=== PATIENT | male | born 1995 | race Caucasian/White ===

== ENCOUNTER 2019-08-09 18:02 | Emergency (ER) | payer BC ==
--- NOTE | 2019-08-09 18:32 | EDM.PDOC ---
<Guera Lorenzo - Last Filed: 08/09/19 18:44> ED HPI GENERAL MEDICAL PROBLEM - General Chief Complaint: Cardiovascular Problem Stated Complaint: DIZZY, FELT SICK, LEFT SIDE OF BODY NUMB PER PT Time Seen by Provider: 08/09/19 18:30 Source of Information: Reports: Patient History Limitations: Reports: No Limitations - History of Present Illness INITIAL COMMENTS - FREE TEXT/NARRATIVE: Patient presents to the ED by private vehicle with concerns of dizziness, left sided weakness, and nausea. The patient describes driving in the car with his mother when he had a sudden onset of room spinning dizziness and nausea, mostly occurring on the right side of his body. He reports when getting out of the vehicle feeling that he was walking unbalanced toward his left. The patient denies chest pain, palpitations, shortness of breath, abdominal pain. The patient's mother with him at bedside reports that he was sitting in a very warm car waiting for her to arrive when this episode started. He denies smoking, elicit drug use, and only occasional alcohol use. He has a past medical history of occasional SVTs. He also admits to a distant history of migraines, his last migraine was over 1 year ago. Onset: Today Duration: Minutes: (Resolved shortly upon lying down in the ED) Severity: Moderate Improves with: Reports: None Worsens with: Reports: None Associated Symptoms: Reports: Nausea/Vomiting, Weakness. Denies: Confusion, Fever/Chills, Headaches, Syncope - Related Data Allergies Allergy/AdvReac Type Severity Reaction Status Date / Time No Known Allergies Allergy Verified 08/09/19 18:21 Home Meds: Home Meds . [No Known Home Meds] 08/09/19 [History] Past Medical History Cardiovascular History: Reports: Other (See Below) Other Cardiovascular History: PVC's Social & Family History - Family History Family Medical History: Noncontributory - Tobacco Use Smoking Status *Q: Never Smoker - Caffeine Use Caffeine Use: Reports: Soda - Recreational Drug Use Recreational Drug Use: No ED ROS GENERAL - Review of Systems Review Of Systems: See Below Constitutional: Reports: Weakness. Denies: Fever, Chills HEENT: Reports: Vertigo Respiratory: Denies: Shortness of Breath Cardiovascular: Reports: Lightheadedness. Denies: Chest Pain, Palpitations, Syncope GI/Abdominal: Denies: Abdominal Pain, Nausea, Vomiting Neurological: Reports: Dizziness, Numbness, Difficulty Walking, Gait Disturbance. Denies: Headache, Paresthesia, Syncope, Tingling, Tremors Psychiatric: Reports: Confusion, Hallucinations ED EXAM, GENERAL - Physical Exam Exam: See Below Exam Limited By: No Limitations General Appearance: Alert, No Apparent Distress, Anxious Eye Exam: Bilateral Eye: EOMI, PERRL Ears: Normal External Exam, Normal Canal, Normal TMs Ear Exam: Bilateral Ear: Auricle Normal, Canal Normal, TM normal (TM retracted on left) Nose: Normal Inspection, Normal Mucosa Throat/Mouth: Normal Inspection, Normal Oropharynx Head: Atraumatic, Normocephalic Neck: Supple, Non-Tender, Full Range of Motion Respiratory/Chest: No Respiratory Distress, Lungs Clear, Normal Breath Sounds Cardiovascular: Normal Peripheral Pulses, Regular Rate, Rhythm, No Murmur GI/Abdominal: Normal Bowel Sounds, Soft, Non-Tender Extremities: Normal Capillary Refill Neurological: Alert, Oriented, No Motor/Sensory Deficits Skin Exam: Warm, Dry, Intact Lymphatic: No Adenopathy EKG INTERPRETATION EKG Date: 08/09/19 Time: 18:10 Rhythm: NSR Rate (Beats/Min): 65 [place]: Normal P-Wave: Present QRS: Normal ST-T: Normal QT: Normal Comparison: NA - No Prior EKG Course - Vital Signs Last Recorded V/S: Last Vital Signs Temp 98.3 F 08/09/19 18:17 Pulse 67 08/09/19 18:17 Resp 14 08/09/19 18:17 BP 150/77 H 08/09/19 18:17 Pulse Ox 100 08/09/19 18:17 - Orders/Labs/Meds Orders: Active Orders 24 hr Category Date Time Status EKG 12 Lead [EKG Documentation Completion] [RC] STAT Care 08/09/19 18:28 Active Labs: Laboratory Tests 08/09/19 08/09/19 Range/Units 18:30 18:30 WBC 9.5 (5.0-10.0) 10^3/uL RBC 5.64 (4.6-6.2) 10^6/uL Hgb 17.6 (14.0-18.0) g/dL Hct 48.4 (40.0-54.0) % MCV 85.8 (80-100) fL MCH 31.2 (27.0-34.0) pg MCHC 36.4 H (33.0-35.0) g/dL Plt Count 220 (150-450) 10^3/uL Neut % (Auto) 57.0 (42.2-75.2) % Lymph % (Auto) 32.9 (20.5-50.1) % [place] % (Auto) 7.4 (2-8) % Eos % (Auto) 2.4 (1.0-3.0) % Baso % (Auto) 0.3 (0.0-1.0) % Sodium 138 (135-145) mmol/L Potassium 3.9 (3.6-5.0) mmol/L Chloride 102 (101-111) mmol/L Carbon Dioxide 26.0 (21.0-31.0) mmol/L Anion Gap 13.9 BUN 16 (7-18) mg/dL Creatinine 0.9 (0.6-1.3) mg/dL Est Cr Clr Drug Dosing 105.98 mL/min Estimated GFR (MDRD) > 60 BUN/Creatinine Ratio 17.77 Glucose 112 H (74-105) mg/dL Calcium 9.7 (8.4-10.2) mg/dl Total Bilirubin 1.0 (0.2-1.0) mg/dL AST 27 (10-42) IU/L ALT 28 (10-60) IU/L Alkaline Phosphatase 72 (42-121) IU/L Total Protein 7.8 (6.7-8.2) g/dl Albumin 4.8 (3.2-5.5) g/dl Globulin 3.0 Albumin/Globulin Ratio 1.60 Ethyl Alcohol < 5 mg/dL Meds: Medications Discontinued Medications Generic Name Dose Route Start Last Admin Trade Name Freq PRN Reason Stop Dose Admin Meclizine HCl 12.5 mg 08/09/19 18:54 08/09/19 19:16 Antivert PO 08/09/19 18:55 12.5 mg ONETIME ONE Administration Ondansetron HCl 8 mg 08/09/19 18:54 08/09/19 19:17 Zofran Odt PO 08/09/19 18:55 8 mg ONETIME ONE Administration Departure - Departure Disposition: Home, Self-Care 01 Clinical Impression: Vertigo Migraine Qualifiers: Migraine type: unspecified Status migrainosus presence: without status migrainosus Intractability: not intractable Qualified Code(s): G43.909 - Migraine, unspecified, not intractable, without status migrainosus Instructions: Vertigo, [id number], Dizziness, [id number], Migraine Headache , [id number] Forms: ED Department Discharge Additional Instructions: RX: Meclizine for dizziness Follow up with your primary care facility Follow up with Physical Therapy for further management Sepsis Event Note - Evaluation Sepsis Screening Result: No Definite Risk - Focused Exam Vital Signs: Vital Signs Temp Pulse Resp BP Pulse Ox 08/09/19 18:17 98.3 F 67 14 150/77 H 100 Date Exam was Performed: 08/09/19 Time Exam was Performed: 18:44 <Chris Clark - Last Filed: 08/09/19 18:48> Course - Orders/Labs/Meds Meds: Medications Discontinued Medications Generic Name Dose Route Start Last Admin Trade Name Freq PRN Reason Stop Dose Admin Meclizine HCl 12.5 mg 08/09/19 18:54 08/09/19 19:16 Antivert PO 08/09/19 18:55 12.5 mg ONETIME ONE Administration Ondansetron HCl 8 mg 08/09/19 18:54 08/09/19 19:17 Zofran Odt PO 08/09/19 18:55 8 mg ONETIME ONE Administration - Re-Assessments/Exams Free Text/Narrative Re-Assessment/Exam: 08/09/19 18:48 I personally performed or re-performed the physical examination and medical decision making. I have verified all student documentation or findings, including history, physical exam and/or medical decision making. Care of pt transferred to Autumn Basilio LOSS CONTROL TECHNICIAN at shift change. Sepsis Event Note - Focused Exam Date Exam was Performed: 08/09/19 Time Exam was Performed: 18:48 <Autumn Basilio - Last Filed: 08/09/19 20:40> Course - Radiology Interpretation Free Text/Narrative:: Head CT: FINDINGS: Brain: Normal. No hemorrhage. Unremarkable white matter. No mass effect. Ventricles: Normal. No ventriculomegaly. Bones/joints: Unremarkable. No acute fracture. Sinuses: Visualized sinuses are unremarkable. No fluid levels. Mastoid air cells: Visualized mastoid air cells are well aerated. Orbits: Unremarkable. Soft tissues: Unremarkable. IMPRESSION: No acute intracranial abnormality. Thank you for allowing us to participate in the care of your patient. Dictated and Authenticated by: Kit Flores MD 08/09/2019 8:31 PM Central Time ([place] & [place]) Departure - Departure Time of Disposition: 20:34 Reason for Transfer *Q: Other Condition: Fair Sepsis Event Note - Focused Exam Date Exam was Performed: 08/09/19 Time Exam was Performed: 20:33
[2019-08-09] MEDS ORDERED: Meclizine 12.5 MG Tab PO ONE (18:54)
[2019-08-09] MEDS ORDERED: Ondansetron 4 MG Tab.DIS PO ONE (18:54)
[2019-08-09 18:56] LABS: ANION GAP 13.9; CHLORIDE,CL 102 mmol/L (101-111); SODIUM,NA 138 mmol/L (135-145)
== END 2019-08-09 20:48 | disposition home or self-care (01) ==
LOC: DL.ED 18:02
DX: G43.909 Migraine, unspecified, not intractable, without status migrainosus (principal)
CPT/HCPCS: 36415; 70450; 80053; 80307; 85025; 93005; 99285; A9270